=== PATIENT | female | born 1985 | race Caucasian/White ===

== ENCOUNTER 2017-09-06 07:01 | Inpatient (IN) | payer OTHER ==
[2017-09-06] VITALS (14 sets, daily range): BP systolic 105–137; BP diastolic 58–82; PULSE 79–128; RESP 15–24; TEMP 97.8–99.8; O2SAT 93–99
[~2017-09-06] VITALS: Ht 165.1 cm; Wt 104.0 kg
[~2017-09-06 07:01] MED LIST: BACT800T5 PO; CEPH-460 PO; schizo med PO
[2017-09-06] MEDS ORDERED: VENL75TA2 PO (07:11)
[2017-09-06] MEDS ORDERED: OLAN10TA PO (07:11)
[2017-09-06] MEDS ORDERED: OLAN5TAB PO (07:11)
[2017-09-06] MEDS ORDERED: BENZ0.5T PO (07:11)
[2017-09-06] MEDS ORDERED: DIVA500T PO (07:11)
[2017-09-06] MEDS ORDERED: BUSP15TA PO (07:11)
[2017-09-06] MEDS ORDERED: RESP: RACEPINEPHRINE 2.25% 0.5 ML NEB NEB ONE (07:15)
[2017-09-06] MEDS ORDERED: SODIUM CHLORIDE 0.9% FLUSH 10 ML FLUSH IVF PRN (07:15)
[2017-09-06] MEDS ORDERED: DEXAMETHASONE SOD PHOS 20 MG/5 ML VIAL IV PUSH ONE (07:15)
[2017-09-06 07:28] LABS: AUTOMATED NEUTROPHIL # 5.5 TH/MM3 (1.8-7.7); BASOPHIL # 0.1 TH/MM3 (0-0.2); BASOPHIL % 0.7 % (0.0-2.0); EOSINOPHIL # 0.1 TH/MM3 (0-0.4); EOSINOPHIL % 0.9 % (0.0-4.0); HEMATOCRIT 37.9 % (35.0-46.0); HEMOGLOBIN 12.7 GM/DL (11.6-15.3); LYMPH % 37.9 % (9.0-44.0); LYMPHOCYTE # 3.9 TH/MM3 (1.0-4.8); MEAN CELL VOLUME 86.1 FL (80.0-100.0); MEAN CORPUSCULAR HEMOGLOBIN 28.9 PG (27.0-34.0); MEAN CORPUSCULAR HGB CONC 33.6 % (32.0-36.0); MEAN PLATELET VOLUME 8.1 FL (7.0-11.0); MONO % 7.2 % (0.0-8.0); MONOCYTE # 0.7 TH/MM3 (0-0.9); NEUT % 53.3 % (16.0-70.0); PLATELET COUNT 267 TH/MM3 (150-450); RED CELL DISTRIBUTION WIDTH 15.1 % (11.6-17.2); WHITE BLOOD COUNT 10.2 TH/MM3 (4.0-11.0)
--- NOTE | 2017-09-06 07:32 | PD ---
HPI Chief Complaint: Allergic/Adverse Reaction Time Seen by Provider: 07:13 Travel History International Travel<30 days: No Contact w/Intl Traveler<30days: No Traveled to known affect area: No History of Present Illness HPI Patient is a 31-year-old female presents emergency department difficulty swallowing and swollen tongue after apparently taking a new medication a B12 supplement last night. Symptoms began about 7:00pm last night. The patient is drooling, states it's difficult to swallow. States his symptoms are moderate, gradually worsening throughout the night and called 911 this morning. In route the patient did receive 50 of Benadryl IV, she's never had this happen to her before. EMS states that she did have some hives late last night but those have resolved. She denies any chest pain shortness of breath abdominal pain nausea vomiting. Symptoms are moderate to severe, context as above, associated signs symptoms as above, onset as above. PFSH Past Medical History Hx Anticoagulant Therapy: No Arthritis: No Autoimmune Disease: No Bipolar Disorder: Yes Anxiety: Yes Depression: Yes Heart Rhythm Problems: No Cancer: No Cardiovascular Problems: No High Cholesterol: No Chemotherapy: No Chest Pain: No Congestive Heart Failure: No COPD: No Cerebrovascular Accident: No Diabetes: No Diminished Hearing: No Headaches: No Hypertension: No Kidney Stones: No Musculoskeletal: No Neurologic: No Psychiatric: Yes Reproductive: No Respiratory: No Immunizations Current: No Migraines: No Myocardial Infarction: No Radiation Therapy: No Renal Failure: No Schizophrenia: Yes Seizures: No Sleep Apnea: No ?: Not : 3 Para: 2 Miscarriage: 1 : 0 Past Surgical History Surgical History: No Previous Surgery Hysterectomy: No Pacemaker: No Other Surgery: Yes Social History Alcohol Use: No Tobacco Use: No Substance Use: No Allergies-Medications (Allergen,Severity, Reaction): Coded Allergies: aspirin (Unverified Allergy, Severe, BREATHING DIFFICULTY, 09/06/17) Reported Meds & Prescriptions Reported Meds & Active Scripts Active Reported Divalproex DR (Divalproex Sodium) 500 Mg Tabdr 500 Mg PO BID Olanzapine 5 Mg Tab 5 Mg PO DAILY Olanzapine 10 Mg Tab 10 Mg PO HS Benztropine (Benztropine Mesylate) 0.5 Mg Tab 0.5 Mg PO BID Buspirone (Buspirone HCl) 15 Mg Tab 15 Mg PO BID Venlafaxine ER 24 HR (Venlafaxine HCl) 75 Mg Tab 75 Mg PO DAILY Review of Systems Except as stated in HPI: all other systems reviewed are Neg Physical Exam Narrative GENERAL: Well-developed well-nourished, has muffled voice, minimal upper lip swelling. SKIN: Focused skin assessment warm/dry. No hives HEAD: Atraumatic. Normocephalic. EYES: Pupils equal and round. No scleral icterus. No injection or drainage. ENT: No nasal bleeding or discharge. Mucous membranes pink and moist. TMs clear bilaterally, the patient does have significant tongue swelling, muffled voice, she is spitting her secretions out, very difficult to examine her soft palate which may be somewhat swollen as well. The patient is able to swallow but is somewhat difficult. NECK: Trachea midline. No JVD. CARDIOVASCULAR: Regular rate and rhythm. No murmur appreciated. RESPIRATORY: No accessory muscle use. Clear to auscultation. Breath sounds equal bilaterally. GASTROINTESTINAL: Abdomen soft, non-tender, nondistended. Hepatic and splenic margins not palpable. MUSCULOSKELETAL: No obvious deformities. No clubbing. No cyanosis. No edema. NEUROLOGICAL: Awake and alert. No obvious cranial nerve deficits. Motor grossly within normal limits. Normal speech. PSYCHIATRIC: Appropriate mood and affect; insight and judgment normal. Data Data Last Documented VS Vital Signs Date Time Temp Pulse Resp B/P (MAP) Pulse Ox O2 Delivery O2 Flow Rate FiO2 09/06/17 08:17 104 20 133/67 (89) 97 Room Air 09/06/17 07:04 99.8 Orders Orders Basic Metabolic Panel (Bmp) (09/06/17 07:14) Complete Blood Count With Diff (09/06/17 07:14) Chest, Single Ap (09/06/17 07:14) Ecg Monitoring (09/06/17 07:14) Iv Access Insert/Monitor (09/06/17 07:14) Oximetry (09/06/17 07:14) Oxygen Administration (09/06/17 07:14) Sodium Chloride 0.9% Flush (Ns Flush) (09/06/17 07:15) Racemic Epinephrine 2.25% Neb (Racepinep (09/06/17 07:15) Dexamethasone Inj (Decadron Inj) (09/06/17 07:15) Valproic Acid (Depakene) (09/06/17 07:58) Admit Order (Ed Use Only) (09/06/17 ) Sodium Chloride 0.9% Flush (Ns Flush) (09/06/17 08:30) Epinephrine (1:1000) Inj (Adrenalin (1:1 (09/06/17 08:30) Labs Laboratory Tests Test 09/06/17 07:20 White Blood Count 10.2 TH/MM3 Red Blood Count 4.40 MIL/MM3 Hemoglobin 12.7 GM/DL Hematocrit 37.9 % Mean Corpuscular Volume 86.1 FL Mean Corpuscular Hemoglobin 28.9 PG Mean Corpuscular Hemoglobin Concent 33.6 % Red Cell Distribution Width 15.1 % Platelet Count 267 TH/MM3 Mean Platelet Volume 8.1 FL Neutrophils (%) (Auto) 53.3 % Lymphocytes (%) (Auto) 37.9 % Monocytes (%) (Auto) 7.2 % Eosinophils (%) (Auto) 0.9 % Basophils (%) (Auto) 0.7 % Neutrophils # (Auto) 5.5 TH/MM3 Lymphocytes # (Auto) 3.9 TH/MM3 Monocytes # (Auto) 0.7 TH/MM3 Eosinophils # (Auto) 0.1 TH/MM3 Basophils # (Auto) 0.1 TH/MM3 CBC Comment DIFF FINAL Differential Comment Blood Urea Nitrogen 8 MG/DL Creatinine 0.83 MG/DL Random Glucose 120 MG/DL Calcium Level 8.0 MG/DL Sodium Level 141 MEQ/L Potassium Level 3.6 MEQ/L Chloride Level 107 MEQ/L Carbon Dioxide Level 26.1 MEQ/L Anion Gap 8 MEQ/L Estimat Glomerular Filtration Rate 80 ML/MIN Valproic Acid (Depakene) Level 88 MCG/ML MDM Medical Decision Making Medical Screen Exam Complete: Yes Emergency Medical Condition: Yes Differential Diagnosis Angioedema, anaphylaxis, hives. Narrative Course Patient roomed in emergency department, Closed the nursing station for frequent reevaluation by me, her symptoms are static even after racemic epi treatment, Decadron given emergency department, epinephrine subcutaneous. Patient is obese , has fairly thick neck, anticipate a very difficult intubation she is in need of careful monitoring of her airway, I had asked for one of my colleagues to see the patient is well as well as Dr. Houser and after Dr. Houser has seen the patient he would like to have the patient closely observed in the ICU for the time being we'll hold off with intubation. I think this is reasonable course of action for the time being. Dr. Houser will assume care at this time the patient to be admitted to the ICU. Critical Care Narrative Aggregate critical care time was 35 minutes. Time to perform other separately billable procedures was not included in the critical care time. My time did not include minutes spent treating any other patients simultaneously or on activities that did not directly contribute to the patient's treatment. The services I provided to this patient were to treat and/or prevent clinically significant deterioration that could result in: , disability, organ failure I provided critical care services requiring my management, as noted below: Chart data review, documentation time, medication orders and management, vital sign assessments/reviewing monitor data, ordering and reviewing lab tests, ordering and interpreting/reviewing x-rays and diagnostic studies, care of the patient and discussion of the patient with the admitting physicians. Diagnosis Primary Impression: Angioedema Qualified Codes: T78.3XXA - Angioneurotic edema, initial encounter Admitting Information Admitting Physician Requests: Admit Condition: Serious Frankie Rowan MD Sep 06, 2017 07:32
[2017-09-06 07:43] LABS: BICARBONATE 26.1 MEQ/L (21.0-32.0); CREATININE 0.83 MG/DL (0.50-1.00)
--- NOTE | 2017-09-06 08:00 | RADRPT ---
EXAM DATE/TIME: 09/06/2017 07:30 [facility] COMPARISON: No previous studies available for comparison. INDICATIONS : Chest pain and shortness of breath. MEDICAL HISTORY : None. SURGICAL HISTORY : None. ENCOUNTER: Initial ACUITY: 1 day PAIN SCORE: 3/10 LOCATION: Bilateral chest FINDINGS: The lungs are under aerated but clear. The cardiomediastinal contours are unremarkable. Osseous str uctures are intact. CONCLUSION: Under aerated but clear. Colt Guerrero MD FACR on September 06, 2017 at 7:58 Board Certified Radiologist. This report was verified electronically.
[2017-09-06] MEDS ORDERED: SODIUM CHLORIDE 0.9% FLUSH 10 ML FLUSH IV FLUSH PRN (08:30)
[2017-09-06] MEDS ORDERED: EPINEPHrine HCL (1:1000) 1 MG/ML VIAL IM ONE (08:30)
[2017-09-06] MEDS ORDERED: MAGNESIUM HYDROXIDE SUSP 30 ML CUP PO PRN (08:45)
[2017-09-06] MEDS ORDERED: POTASSIUM CHLORIDE 25 MEQ EFFERVESCENT TAB PO PRN (08:45)
[2017-09-06] MEDS ORDERED: POTASSIUM PHOSPHATE INJ 30 MMOL in SODIUM CHLOR 0.9% 250 ML INJ 250 ML IV PRN (08:45)
[2017-09-06] MEDS ORDERED: BISACODYL 10 MG SUPP RECTAL PRN (08:45)
[2017-09-06] MEDS ORDERED: RESP: ALBUTEROL 2.5 MG/IPRATROPIUM 0.5 MG NEB (PRN) INH (08:45)
[2017-09-06] MEDS ORDERED: SODIUM PHOSPHATE INJ 30 MMOL in SODIUM CHLOR 0.9% 250 ML INJ 240 ML IV PRN (08:45)
[2017-09-06] MEDS ORDERED: POTASSIUM PHOSPHATE MONOBASIC 500 MG TAB PO PRN (08:45)
[2017-09-06] MEDS ORDERED: POTASSIUM CHLOR 40 MEQ PREMIX 100 ML IV PRN ×2 (08:45)
[2017-09-06] MEDS ORDERED: POTASSIUM PHOSPHATE MONOBASIC 500 MG TAB PO/TUBE PRN (08:45)
[2017-09-06] MEDS ORDERED: POTASSIUM CHLOR 20 MEQ PREMIX 100 ML IV PRN ×2 (08:45)
[2017-09-06] MEDS ORDERED: CHLORHEXIDINE GLUCONATE 2 % 1 PACK (2 CLOTHS) TOP PRN (08:45)
[2017-09-06] MEDS ORDERED: LACTULOSE SYRUP 20 GM/30 ML CUP PO PRN (08:45)
[2017-09-06] MEDS ORDERED: MAGNESIUM SULFATE INJ 2 GM in SODIUM CHLORIDE 0.9% INJ 96 ML IV PRN (08:45)
[2017-09-06] MEDS ORDERED: MISCELLANEOUS NURSING INFORMATION XX SCH (08:45)
[2017-09-06] MEDS ORDERED: MAGNESIUM OXIDE 400 MG TAB PO PRN (08:45)
[2017-09-06] MEDS ORDERED: SENNOSIDES 8.6 MG TAB PO PRN (08:45)
[2017-09-06] MEDS ORDERED: MAGNESIUM SULFATE INJ 4 GM in SODIUM CHLORIDE 0.9% INJ 92 ML IV PRN (08:45)
[2017-09-06] MEDS ORDERED: GLUCAGON 1 MG/ML VIAL OTHER PRN (09:00)
[2017-09-06] MEDS ORDERED: DEXTROSE 50% IN WATER 50 ML VIAL(D50) IV PUSH PRN (09:00)
[2017-09-06] MEDS: FAMOTIDINE 20 MG TAB PO SCH ×2 (09:00→21:09)
[2017-09-06] MEDS: DOCUSATE SODIUM 50 MG/SENNA 8.6 MG TAB PO SCH ×2 (09:00→21:09)
[2017-09-06] MEDS: INSULIN NovoLIN REGULAR SUPPLEMENTAL SCALE SQ SCH ×4 (09:00→21:00)
[2017-09-06] MEDS: diphenhydrAMINE HCL 50 MG/ML VIAL IV PUSH SCH ×2 (09:00→16:36)
[2017-09-06] MEDS: HEPARIN SODIUM - SQ 10,000 UNITS/ML VIAL SQ SCH ×2 (09:32→21:09)
[2017-09-06] MEDS: SODIUM CHLOR 0.9% 1000 ML INJ 1,000 ML IV SCH ×2 (09:32→22:24)
--- NOTE | 2017-09-06 10:20 | RADRPT ---
EXAM DATE/TIME: 09/06/2017 09:39 [facility] COMPARISON: No previous studies available for comparison. INDICATIONS : Dysphagia, tongue swelling today. RADIATION DOSE: 17.28 CTDIvol (mGy) MEDICAL HISTORY : None SURGICAL HISTORY : None. ENCOUNTER: Initial ACUITY: 1 day PAIN SCORE: 7/10 LOCATION: Bilateral neck TECHNIQUE: Volumetric scanning of the neck was performed. Using automated exposure control and adjustment of th e mA and/or kV according to patient size, radiation dose was kept as low as reasonably achievable to obtain optimal diagnostic quality images. DICOM format image data is available electronically for re view and comparison. FINDINGS: NASOPHARYNX: The nasopharyngeal airway has a normal configuration. No mucosal thickening or mass is seen. OROPHARYNX: The intrinsic muscles of the tongue are symmetric. The tonsillar pillars are intact. The prevertebr al soft tissues are not thickened. LARYNX: The supraglottic, glottic, and infraglottic structures are intact. PARAPHARYNGEAL: The parapharyngeal space is intact. SALIVARY GLANDS: The parotid and submandibular glands are intact. LYMPH NODES: No enlarged or necrotic-appearing nodes. THYROID: Homogeneous enhancement without evidence of nodule. BONES: Unremarkable. CONCLUSION: Negative for adenopathy or abscess. Correlation suggested. Colt Guerrero MD FACR on September 06, 2017 at 10:18 Board Certified Radiologist. This report was verified electronically.
--- NOTE | 2017-09-06 10:26 | MH ---
cc: ISATU VALENTIN M.D. DATE OF : 1985 DATE OF ADMISSION: 09/06/2017 ADMITTING DIAGNOSIS: HISTORY OF PRESENT ILLNESS: The patient is a 31 year-old female with a history of depression/psychotic disorder, who presented to [facility] Emergency Department with difficulty swallowing and swelling of her tongue and lips. The patient states that she took a B12 tablet at 2:00 p.m. yesterday and she started noticing swelling of her tongue and lips at 7:00 p.m. last night. She also reports difficulty swallowing and her symptoms gradually worsened throughout the night. She called 9-1-1 this morning and the patient received Benadryl 50 mg IV. She denies any similar presentation in the past. In addition she denies any use of RONAK inhibitor or any history of hypertension. The patient denies any chest pain, itching or rash. No history of any constitutional symptoms. On arrival to the ER she had a temperature of 99.8, blood pressure 138/76 and saturation 96% on room air. She appears comfortable and not in any acute distress. Chest x-ray in the ER showed clear lungs without any obvious infiltrates or effusions. In the ED, she was given Decadron 10 milligrams IV push and epinephrine. PAST MEDICAL HISTORY: Significant for: 1. Depression/psychotic disorder. PAST SURGICAL HISTORY: Unremarkable. FAMILY HISTORY: No history of cardiac or pulmonary disease. ALLERGIES: ASPIRIN. Side effects unknown. SOCIAL HISTORY: Non-smoker, non-drinker, denies drug use. MEDICATIONS AT HOME: 1. Benzatropine. 2. Venlafaxine. 3. Buspirone. 4. Olanzapine. 5. Divalproex sodium. REVIEW OF SYSTEMS: As per HPI. The rest of the review of systems is unremarkable. PHYSICAL EXAMINATION: A 31-year-old female lying in bed in no acute distress. Vital signs: Temperature 99.8, pulse of 91, blood pressure 138/76, saturation 96% on room air. HEENT: Atraumatic, normocephalic. Pupils equal, round and reactive to light and accommodation. Extraocular muscles intact. Conjunctivae pink. Nonicteric sclera. Oral mucosa within normal limits. NECK: Supple. No JVD, swelling of the neck noted. No evidence of any stridor. CARDIOVASCULAR: Regular rate and rhythm. Normal S1-S2. No murmurs, rubs, or gallops. PULMONARY: Bilateral air entry. No rales or wheezing. ABDOMEN: Soft, nontender. No distension. Positive bowel sounds. EXTREMITIES: No clubbing, cyanosis or edema. NEURO: No focal sensory deficit. LABORATORY DATA: Sodium 141, potassium 3.6, chloride 107, CO2 26, BUN 8, creatinine 0.83, glucose 120, calcium 8.0. WBC 10.8, hemoglobin 12.7, hematocrit 37, platelet count 267. Valproic acid 88. Chest x-ray: Clear lungs. IMPRESSION 1. Angioedema, unclear etiology, could be related to B12 tablet. 2. Respiratory insufficiency. 3. Depression. 4. Mild hyperglycemia. RECOMMENDATIONS: 1. Monitor neuro status closely and avoid any sedatives. 2. Place on oxygen, maintain sats above 92%. 3. Bronchodilator in the form of DuoNeb q4 plus q2 p.r.n. for shortness of breath. In addition, will place on Solu-Medrol 60 milligrams IV q6, Benadryl and ranitidine. Check C4 level and C 1 Esterase inhibitor level. 4. Will proceed with CT scan of the neck. Monitor airway closely as if there is any worsening in clinical status, will proceed with intubation and mechanical ventilation. 5. Chest x-ray in the ED showed no obvious infiltrates or effusions. 6. Monitor heart rate and blood pressure closely and maintain MAP greater than [address] on IV fluids, NS 84 mL an hour. 8. Monitor renal function and electrolyte replacement per protocol. IV fluids as stated above. 9. Will hold off on antibiotics at this time as there is no evidence of any infectious process. Chest x-ray in the ED showed no acute disease. Will obtain urinalysis with culture if indicated. 10. Keep n.p.o. for now. Place on ranitidine for GI prophylaxis. 11. Monitor CBC. 12. Place on sliding scale insulin with Accu-Cheks to maintain euglycemia as the patient will be on IV steroids. 13. GI prophylaxis with ranitidine and DVT prophylaxis with SCDs and heparin subcu. Further recommendations will be based on hospital course. Discussed with ED physician. MD BENJI Gan/NEEL /8:52 AM /9:53 AM MTDD
[2017-09-06 12:00] LABS: BACTERIA, URINE OCC /hpf; BILIRUBIN, URINE NEG (NEG); BLOOD, URINE NEG (NEG); GLUCOSE,URINE NEG (NEG); KETONE, URINE 40 mg/dL (NEG); MUCUS URINE FEW /lpf (OCC); NITRITE,URINE NEG (NEG); SQUAMOUS EPITHELIAL CELL URINE 8 /hpf (0-5); URINE COLOR YELLOW (YELLW/STRAW); URINE LEUKOCYTE ESTERASE NEG (NEG)
[2017-09-06] MEDS: methylPREDNISolone SOD SUCC 40 MG/1 ML VIAL IV PUSH SCH ×2 (12:00→18:01)
[2017-09-06] MEDS: RESP: ALBUTEROL 2.5 MG/IPRATROPIUM 0.5 MG NEB (SCH) INH ×2 (16:00→20:22)
[2017-09-07] VITALS (19 sets, daily range): BP systolic 94–129; BP diastolic 41–70; PULSE 96–114; RESP 14–22; TEMP 96.7–98.7; O2SAT 92–97
[2017-09-07] MEDS: RESP: ALBUTEROL 2.5 MG/IPRATROPIUM 0.5 MG NEB (SCH) INH ×6 (00:04→21:51)
[2017-09-07] MEDS: INSULIN NovoLIN REGULAR SUPPLEMENTAL SCALE SQ SCH ×6 (00:48→21:12)
[2017-09-07] MEDS: methylPREDNISolone SOD SUCC 40 MG/1 ML VIAL IV PUSH SCH ×5 (00:48→23:48)
[2017-09-07] MEDS: diphenhydrAMINE HCL 50 MG/ML VIAL IV PUSH SCH ×3 (00:50→17:44)
[2017-09-07 03:55] LABS: AUTOMATED NEUTROPHIL # 5.8 TH/MM3 (1.8-7.7); BASOPHIL % 0.1 % (0.0-2.0); HEMOGLOBIN 10.9 GM/DL (11.6-15.3); LYMPH % 19.9 % (9.0-44.0); LYMPHOCYTE # 1.5 TH/MM3 (1.0-4.8); MEAN CELL VOLUME 86.3 FL (80.0-100.0); MEAN CORPUSCULAR HEMOGLOBIN 28.4 PG (27.0-34.0); MEAN CORPUSCULAR HGB CONC 32.9 % (32.0-36.0); MEAN PLATELET VOLUME 8.1 FL (7.0-11.0); MONOCYTE # 0.2 TH/MM3 (0-0.9); PLATELET COUNT 236 TH/MM3 (150-450); RED BLOOD COUNT 3.82 MIL/MM3 (4.00-5.30); RED CELL DISTRIBUTION WIDTH 15.1 % (11.6-17.2); WHITE BLOOD COUNT 7.6 TH/MM3 (4.0-11.0)
[2017-09-07] MEDS: CHLORHEXIDINE GLUCONATE 2 % 1 PACK (2 CLOTHS) TOP SCH (04:00)
[2017-09-07 04:34] LABS: ALBUMIN 2.7 GM/DL (3.4-5.0); ALKALINE PHOSPHATASE 83 U/L (45-117); ALT (GPT) 31 U/L (10-53); AST (GOT) 17 U/L (15-37); BICARBONATE 24.3 MEQ/L (21.0-32.0); BLOOD UREA NITROGEN 14 MG/DL (7-18); CHLORIDE 110 MEQ/L (98-107); CREATININE 0.61 MG/DL (0.50-1.00); GLOMERULAR FILTRATION RATE 114 ML/MIN (>89); GLUCOSE,RANDOM 142 MG/DL (74-106); MAGNESIUM 2.3 MG/DL (1.5-2.5); PHOSPHORUS 3.6 MG/DL (2.5-4.9); SODIUM (NA) 143 MEQ/L (136-145); TOTAL BILIRUBIN ADULT 0.2 MG/DL (0.2-1.0); TOTAL PROTEIN 6.5 GM/DL (6.4-8.2)
[2017-09-07] MEDS: FAMOTIDINE 20 MG TAB PO SCH ×2 (08:33→21:03)
[2017-09-07] MEDS: HEPARIN SODIUM - SQ 10,000 UNITS/ML VIAL SQ SCH ×2 (08:33→21:03)
[2017-09-07] MEDS: DOCUSATE SODIUM 50 MG/SENNA 8.6 MG TAB PO SCH ×2 (08:33→21:00)
[2017-09-07] MEDS: SODIUM CHLOR 0.9% 1000 ML INJ 1,000 ML IV SCH (08:50)
--- NOTE | 2017-09-07 14:35 | HHI.CCPN ---
Subjective Remarks/Hospital Course 09/07: The patient is a 31 year-old female with a history of depression/ psychotic disorder, who presented to [facility] Emergency Department with difficulty swallowing and swelling of her tongue and lips. The patient states that she took a B12 tablet at 2:00 p.m. yesterday and she started noticing swelling of her tongue and lips at 7:00 p.m. last night. She also reports difficulty swallowing and her symptoms gradually worsened throughout the night. She called 9-1-1 this morning and the patient received Benadryl 50 mg IV. She denies any similar presentation in the past. In addition she denies any use of RONAK inhibitor or any history of hypertension. The patient denies any chest pain, itching or rash. No history of any constitutional symptoms. On arrival to the ER she had a temperature of 99.8, blood pressure 138/76 and saturation 96% on room air. She appears comfortable and not in any acute distress. Chest x-ray in the ER showed clear lungs without any obvious infiltrates or effusions. In the ED, she was given Decadron 10 milligrams IV push and epinephrine. 09/08: Resting comfortably in bed. Tongue swelling and lip swelling of gone down. Denies any trouble breathing. Objective Vital Signs Date Time Temp Pulse Resp B/P (MAP) Pulse Ox O2 Delivery O2 Flow Rate FiO2 09/07/17 13:00 107 18 95/41 (59) 09/07/17 12:28 94 09/07/17 12:00 98.7 09/06/17 20:23 21 09/06/17 09:33 Nasal Cannula 2.00 Intake and Output 09/07/17 09/07/17 09/08/17 08:00 16:00 00:00 Intake Total 898 ml 352 ml Output Total 1000 ml Balance -102 ml 352 ml Result Diagram: 09/07/17 0325 09/07/17 0325 Other Results Microbiology Date/Time Source Procedure Growth Status 09/06/17 11:35 Urine Catheterized Urine Urine Culture - Final 10-50,000 CFU/ML MIXED CIRO... Complete Objective Remarks HEENT/Neuro: No pallor or icterus, tongue moist, BABS, Awake alert oriented 3 , nonfocal grossly, moving all 4 extremities Neck: No JVD Chest/pulmonary: CTA bilaterally Cardiovascular: S1-S2 regular no gallop or murmur GI/abdomen: Soft, nontender, bowel sounds present Extremities: Warm bilaterally, no edema A/P Assessment and Plan IMPRESSION 1. Angioedema, unclear etiology, could be related to B12 tablet. 2. Respiratory insufficiency. 3. Depression. 4. Mild hyperglycemia. RECOMMENDATIONS: 1. Monitor neuro status and avoid any sedatives. 2. Place on oxygen, maintain sats above 92%. 3. Bronchodilator in the form of DuoNeb q4 plus q2 p.r.n. for shortness of breath. Solu-Medrol 60 milligrams IV q6, Benadryl and ranitidine. Check C4 level and C 1 Esterase inhibitor level. 4. Angioedema seems to have improved overnight. 5. Chest x-ray in the ED showed no obvious infiltrates or effusions. 6. Monitor heart rate and blood pressure closely and maintain MAP greater than 65 mmHg. 7. KVO IV fluids 8. Monitor renal function and electrolyte replacement per protocol. IV fluids as stated above. 9. Will hold off on antibiotics at this time as there is no evidence of any infectious process. Chest x-ray in the ED showed no acute disease. Will obtain urinalysis with culture if indicated. 10. Advance by mouth diet. Place on ranitidine for GI prophylaxis. 11. Monitor CBC. 12. Place on sliding scale insulin with Accu-Cheks to maintain euglycemia as the patient will be on IV steroids. 13. GI prophylaxis with ranitidine and DVT prophylaxis with SCDs and heparin subcu. Transfer out of ICU. Transfer to hospitalist service for further medical management. Douglas Whitlock MD Sep 07, 2017 14:35
[2017-09-07] MEDS: DIVALPROEX DR 500 MG TABEC PO SCH ×2 (15:09→21:03)
[2017-09-07] MEDS: OLANZapine 5 MG TAB PO SCH (15:10)
[2017-09-07] MEDS: BENZTROPINE MESYLATE 1 MG TAB PO SCH ×2 (15:10→21:03)
[2017-09-07] MEDS: busPIRone HCL 5 MG TAB PO SCH ×2 (15:19→21:03)
[2017-09-07] MEDS: OLANZapine 10 MG TAB PO SCH (21:03)
[2017-09-08] VITALS (8 sets, daily range): BP systolic 111–142; BP diastolic 53–71; PULSE 72–105; RESP 17–18; TEMP 96.3–98.9; O2SAT 94–98
[2017-09-08] MEDS: RESP: ALBUTEROL 2.5 MG/IPRATROPIUM 0.5 MG NEB (SCH) INH ×6 (00:16→21:28)
[2017-09-08] MEDS: INSULIN NovoLIN REGULAR SUPPLEMENTAL SCALE SQ SCH ×6 (01:21→21:05)
[2017-09-08] MEDS: diphenhydrAMINE HCL 50 MG/ML VIAL IV PUSH SCH ×3 (01:21→17:00)
[2017-09-08] MEDS: CHLORHEXIDINE GLUCONATE 2 % 1 PACK (2 CLOTHS) TOP SCH (04:00)
[2017-09-08] MEDS: methylPREDNISolone SOD SUCC 40 MG/1 ML VIAL IV PUSH SCH (05:46)
[2017-09-08] MEDS: VENLAFAXINE HCL XR 75 MG CAP PO SCH (08:40)
[2017-09-08] MEDS: busPIRone HCL 5 MG TAB PO SCH ×2 (08:40→21:01)
[2017-09-08] MEDS: DOCUSATE SODIUM 50 MG/SENNA 8.6 MG TAB PO SCH ×2 (08:40→21:01)
[2017-09-08] MEDS: FAMOTIDINE 20 MG TAB PO SCH ×2 (08:40→21:00)
[2017-09-08] MEDS: OLANZapine 5 MG TAB PO SCH (08:45)
[2017-09-08] MEDS: HEPARIN SODIUM - SQ 10,000 UNITS/ML VIAL SQ SCH ×2 (08:45→21:02)
[2017-09-08] MEDS: DIVALPROEX DR 500 MG TABEC PO SCH ×2 (09:14→21:00)
[2017-09-08] MEDS: BENZTROPINE MESYLATE 1 MG TAB PO SCH ×2 (09:15→21:00)
[2017-09-08] MEDS ORDERED: methylPREDNISolone SOD SUCC 40 MG/1 ML VIAL IV PUSH SCH (14:00)
--- NOTE | 2017-09-08 16:57 | HHI.PR ---
Subjective Remarks Patient seen today around 2 PM. Says she's feeling all right. Denies any chest or shortness breath. Denies any difficulty breathing currently. Objective Vital Signs Date Time Temp Pulse Resp B/P (MAP) Pulse Ox O2 Delivery O2 Flow Rate FiO2 09/08/17 12:00 97.8 105 18 122/53 (76) 95 09/08/17 08:00 96.3 99 18 111/58 (75) 94 09/08/17 07:45 Room Air 09/08/17 03:49 96.7 94 18 118/68 (85) 94 09/07/17 23:44 96.7 96 18 114/55 (74) 94 09/07/17 21:53 94 21 09/07/17 19:37 97.7 103 18 94/47 (63) 95 I/O 09/07/17 09/07/17 09/07/17 09/08/17 09/08/17 09/08/17 07:00 15:00 23:00 07:00 15:00 23:00 Intake Total 898 ml 352 ml 1380 ml 480 ml Output Total 1000 ml Balance -102 ml 352 ml 1380 ml 480 ml Intake Oral 250 ml 1380 ml 480 ml IV Total 648 ml 352 ml Output Urine Total 1000 ml Stool Total 0 ml # Voids 2 6 3 # Bowel Movements 0 3 0 Result Diagram: 09/07/1732409/07/17324 Objective Remarks GENERAL: patient sitting up in chair. Appears comfortable. SKIN: Warm and dry. HEAD: Normocephalic. EYES: No scleral icterus. No injection or drainage. NECK: Supple, trachea midline. No JVD. CARDIOVASCULAR: Regular rate and rhythm without murmurs, gallops, or rubs. RESPIRATORY: Breath sounds equal bilaterally. No accessory muscle use. GASTROINTESTINAL: Abdomen soft, non-tender, nondistended. MUSCULOSKELETAL: No cyanosis, or edema. BACK: Nontender without obvious deformity. No CVA tenderness. A/P Assessment and Plan //Angioedema, unclear etiology, could be related to B12 tablet. = Pending C1 esterase inhibitor labs. Taper the prednisone by mouth. If doing okay by tomorrow can discharge home with follow-up primary care. We'll need prednisone taper at discharge. //Respiratory insufficiency. Resolved. // Depression. Stable. No SI/HI. Continue home medications. //Mild hyperglycemia. -Glucose up to 300 today. Expect to improve upon taper to prednisone however. Continue insulin sliding scale. Discharge Planning likely discharge home tomorrow. Kalpesh Triana MD Sep 08, 2017 16:57
[2017-09-08] MEDS ORDERED: SODIUM CHLORID 0.9% 500 ML INJ 500 ML IV ONE (17:00)
[2017-09-08] MEDS ORDERED: predniSONE 50 MG TAB PO ONE (18:00)
[2017-09-08] MEDS: OLANZapine 10 MG TAB PO SCH (21:04)
[2017-09-09] MEDS: CHLORHEXIDINE GLUCONATE 2 % 1 PACK (2 CLOTHS) TOP SCH (00:22)
[2017-09-09] MEDS: diphenhydrAMINE HCL 50 MG/ML VIAL IV PUSH SCH (00:22)
[2017-09-09] MEDS: INSULIN NovoLIN REGULAR SUPPLEMENTAL SCALE SQ SCH ×3 (00:22→09:00)
[2017-09-09] MEDS: RESP: ALBUTEROL 2.5 MG/IPRATROPIUM 0.5 MG NEB (SCH) INH ×2 (00:40→04:03)
[2017-09-09 07:47] LABS: AUTOMATED NEUTROPHIL # 6.5 TH/MM3 (1.8-7.7); BASOPHIL % 0.1 % (0.0-2.0); HEMATOCRIT 34.6 % (35.0-46.0); HEMOGLOBIN 11.4 GM/DL (11.6-15.3); LYMPH % 30.5 % (9.0-44.0); LYMPHOCYTE # 3.2 TH/MM3 (1.0-4.8); MEAN CELL VOLUME 87.7 FL (80.0-100.0); MEAN PLATELET VOLUME 8.4 FL (7.0-11.0); MONO % 7.5 % (0.0-8.0); MONOCYTE # 0.8 TH/MM3 (0-0.9); NEUT % 61.9 % (16.0-70.0); PLATELET COUNT 250 TH/MM3 (150-450); RED BLOOD COUNT 3.94 MIL/MM3 (4.00-5.30); RED CELL DISTRIBUTION WIDTH 15.3 % (11.6-17.2); WHITE BLOOD COUNT 10.6 TH/MM3 (4.0-11.0)
[2017-09-09 08:00] VITALS: BP 131/69; PULSE 73; RESP 17; TEMP 96.2; O2SAT 94
[2017-09-09 08:05] LABS: ALBUMIN 2.7 GM/DL (3.4-5.0); BICARBONATE 25.9 MEQ/L (21.0-32.0); CALCIUM 8.2 MG/DL (8.5-10.1); CREATININE 0.87 MG/DL (0.50-1.00); MAGNESIUM 2.3 MG/DL (1.5-2.5); PHOSPHORUS 3.1 MG/DL (2.5-4.9)
[2017-09-09] MEDS: DOCUSATE SODIUM 50 MG/SENNA 8.6 MG TAB PO SCH (09:00)
[2017-09-09] MEDS ORDERED: predniSONE 50 MG TAB PO SCH (09:00)
[2017-09-09 09:06] LABS: BANDS 1 % (0-6); LYMPHOCYTES 35 % (9-44); METAMYELOCYTES 3 % (0-1); MONOCYTES 4 % (0-8); MYELOCYTES 2 % (0-0); NEUTROPHIL # MANUAL DIFF 6.4 TH/MM3 (1.8-7.7); POLYS (SEG NEUTROPHILS) 54 % (16-70)
[2017-09-09] MEDS: busPIRone HCL 5 MG TAB PO SCH (09:42)
[2017-09-09] MEDS: BENZTROPINE MESYLATE 1 MG TAB PO SCH (09:42)
[2017-09-09] MEDS: VENLAFAXINE HCL XR 75 MG CAP PO SCH (09:42)
[2017-09-09] MEDS: FAMOTIDINE 20 MG TAB PO SCH (09:42)
[2017-09-09] MEDS: OLANZapine 5 MG TAB PO SCH (09:43)
[2017-09-09] MEDS: DIVALPROEX DR 500 MG TABEC PO SCH (09:44)
[2017-09-09] MEDS: HEPARIN SODIUM - SQ 10,000 UNITS/ML VIAL SQ SCH (09:45)
[2017-09-09 12:00] VITALS: BP 120/61; PULSE 80; RESP 17; TEMP 97.6; O2SAT 94
[2017-09-09] MEDS ORDERED: diphenhydrAMINE INJ IV PUSH (12:53)
[2017-09-09] MEDS ORDERED: PRED5PAK PO (12:53)
[2017-09-09] MEDS ORDERED: EPIP0.3I IM (12:53)
--- NOTE | 2017-09-09 16:39 | HHI.DS ---
Discharge Summary Admission Date Sep 06, 2017 at 08:23 Discharge Date: Sep 09, 2017 Admitting Diagnosis Angioedema. (1) Angioedema ICD Code: T78.3XXA - Angioneurotic edema, initial encounter Procedures See below Brief History - From Admission The patient is a 31 year-old female with a history of depression/psychotic disorder, who presented to [facility] Emergency Department with difficulty swallowing and swelling of her tongue and lips. The patient states that she took a B12 tablet at 2:00 p.m. yesterday and she started noticing swelling of her tongue and lips at 7:00 p.m. last night. She also reports difficulty swallowing and her symptoms gradually worsened throughout the night. She called 9-1-1 this morning and the patient received Benadryl 50 mg IV. She denies any similar presentation in the past. In addition she denies any use of RONAK inhibitor or any history of hypertension. The patient denies any chest pain, itching or rash. No history of any constitutional symptoms. On arrival to the ER she had a temperature of 99.8, blood pressure 138/76 and saturation 96% on room air. She appears comfortable and not in any acute distress. Chest x-ray in the ER showed clear lungs without any obvious infiltrates or effusions. In the ED, she was given Decadron 10 milligrams IV push and epinephrine. CBC/BMP: 09/09/17 0700 09/09/17 0700 Significant Findings Laboratory Tests Test 09/07/17 03:25 09/09/17 07:00 Red Blood Count 3.82 MIL/MM3 (4.00-5.30) 3.94 MIL/MM3 (4.00-5.30) Hemoglobin 10.9 GM/DL (11.6-15.3) 11.4 GM/DL (11.6-15.3) Hematocrit 33.0 % (35.0-46.0) 34.6 % (35.0-46.0) Neutrophils (%) (Auto) 77.0 % (16.0-70.0) Random Glucose 142 MG/DL (74-106) 157 MG/DL (74-106) Albumin 2.7 GM/DL (3.4-5.0) 2.7 GM/DL (3.4-5.0) Calcium Level 8.0 MG/DL (8.5-10.1) 8.2 MG/DL (8.5-10.1) Chloride Level 110 MEQ/L (98-107) 108 MEQ/L (98-107) Metamyelocytes 3 % (0-1) Myelocytes 2 % (0-0) Estimat Glomerular Filtration Rate 76 ML/MIN (>89) Hospital Course Agent admitted with angioedema unclear etiology possibly related to B-12 tablet , C1 esterase inhibitor labs still pending, patient wants to be going home, her symptoms completely resolved, she is eating and swallowing well, will discharge her on prednisone tapering and EpiPen, she was advised she needs to follow up with her primary care for further workup Pt Condition on Discharge: Fair Discharge Disposition: Discharge Home Discharge Time: <= 30 minutes Discharge Instructions DIET: Follow Instructions for: Heart Healthy Diet Activities you can perform: Weight Bearing as Cassie Follow up Referrals: PCP Follow-up Follow up with primary care doctor in 1-2 days. New Medications: Epinephrine Inj (Epipen 2-Jose Alfredo Inj) 0.3 Mg/0.3 Ml Pfpen 0.3 MG IM ONCE PRN for ALLERGIC REACTION, #1 PACK 0 Refills Prednisone (21) 5 mg tab Dose Pack (Prednisone (21) 5 mg tab Dose Pack) 5 Mg Dspk 5 MG PO DIRECTED for Inflammation, #1 DSPK 0 Refills [diphenhydrAMINE INJ] () 50 MG/ML INJ 25 MG IV PUSH Q8H, #15 Continued Medications: Benztropine (Benztropine) 0.5 Mg Tab 0.5 MG PO BID, #60 TAB 0 Refills Buspirone (Buspirone) 15 Mg Tab 15 MG PO BID for Anxiety, TAB [address] (Divalproex DR) 500 Mg Tabdr 500 MG PO BID for Control Seizures, #60 TAB 0 Refills Olanzapine (Olanzapine) 10 Mg Tab 10 MG PO HS, #30 TAB 0 Refills Olanzapine (Olanzapine) 5 Mg Tab 5 MG PO DAILY, #30 TAB 0 Refills Venlafaxine ER 24 HR (Venlafaxine ER 24 HR) 75 Mg Tab 75 MG PO DAILY, #30 TAB 0 Refills Will East MD Sep 09, 2017 16:39
== END 2017-09-09 14:57 | disposition home or self-care (01) | DRG 916 ==
LOC: NEPE 07:01 → NEDA 08:23 → HIME 09:47 → N06A 09-07 16:17
PROVIDERS: ADMIT Hospitalist; ATTEND Hospitalist
DX: T78.3XXA Angioneurotic edema, initial encounter (principal); R13.10 Dysphagia, unspecified; F20.9 Schizophrenia, unspecified; E66.9 Obesity, unspecified; F31.9 Bipolar disorder, unspecified; R06.89 Other abnormalities of breathing; R73.9 Hyperglycemia, unspecified; T45.2X5A Adverse effect of vitamins, initial encounter; F41.9 Anxiety disorder, unspecified; Z88.6 Allergy status to analgesic agent; Z68.38 Body mass index [BMI] 38.0-38.9, adult
CPT/HCPCS: 70490; 71010; 80048; 80053; 80069; 80164; 80307; 81001; 82948; 83735; 83883; 84100; 85007; 85025; 85027; 86160; 87086; 87641; 94640; 94664; 96374; J0171; J1100; J1200; J1644; J2920; J7030; J7040; J7512